=== PATIENT | female | born 1975 | race Caucasian/White ===

== ENCOUNTER 2022-02-09 04:09 | Emergency (ER) | payer BC ==
[~2022-02-09] VITALS: Ht 162.6 cm; Wt 69.0 kg
[2022-02-09] MEDS ORDERED: ONDANSETRON HCL 4MG/2ML INJ IV STA (04:21)
[2022-02-09] MEDS ORDERED: SODIUM CHLORIDE 0.9% 1,000 ML IV ONE (04:30)
[2022-02-09 04:44] LABS: BASOPHILS % 0.6 % (0.0-2.0); EOSINOPHILS % 2.9 % (0.0-5.0); HEMATOCRIT. 40.2 % (36.0-48.0); HEMOGLOBIN. 13.3 g/dL (12.0-16.0); LYMPHOCYTES % 42.4 % (20.0-50.0); MEAN CORPUSCULAR HEMOGLOBIN 28.1 pg (28.0-32.0); MEAN CORPUSCULAR VOLUME 84.9 fL (81.0-99.0); MONOCYTES % 5.4 % (2.0-8.0); NEUTROPHILS % 48.7 % (40.0-76.0); PLATELET 319 x1000/uL (130-400); RED BLOOD CELL COUNT 4.73 mill/uL (4.2-5.4); RED CELL DISTRIBUTION WIDTH 14.6 % (11.6-14.6)
[2022-02-09 04:50] LABS: CHLORIDE 108 mEq/L (98-107)
[2022-02-09 04:57] LABS: HCG SCREEN NEGATIVE
[2022-02-09] MEDS ORDERED: KCL 10MEQ/50ML PREMIX 50 ML IV NR (05:00)
[2022-02-09] MEDS ORDERED: POTASSIUM CHLORIDE 20MEQ TABLET SR PO NR (05:00)
[2022-02-09] MEDS ORDERED: ONDA4TAB5 MT (05:57)
[2022-02-09 07:52] VITALS: BP 137/78
== END 2022-02-09 07:55 | disposition home or self-care (01) ==
LOC: ER 04:09
DX: F12.10 Cannabis abuse, uncomplicated (principal); E87.6 Hypokalemia; Z85.3 Personal history of malignant neoplasm of breast
CPT/HCPCS: 36415; 80053; 83735; 84703; 85025; 96361; 96374; 99283; J2405; J3480; J7030